=== PATIENT | male | born 1950 | race Caucasian/White ===

== ENCOUNTER 2019-10-28 11:07 | Emergency (ER) | payer MEDICARE, OTHER, SELFPAY ==
[2019-10-28 11:23] VITALS: BP 175/78; PULSE 88; RESP 17; TEMP 36.7; O2SAT 100
--- NOTE | 2019-10-28 11:33 | ED.GENADULT ---
HPI - General Adult General Chief complaint: Ear Stated complaint: Ear pain (left) Time Seen by Provider: 10/28/19 11:33 Source: patient Mode of arrival: ambulatory Limitations: no limitations History of Present Illness HPI narrative: 69-year-old male patient presents the [facility] with complaints of left ear pain and bleeding from the left ear for the past 3 days. Patient states he did have a little bit of pain to the left ear about 4 days ago and states that that it went away the next day but noticed a little bit of blood to the canal when he was cleaning out his ears. Patient states that he does wear hearing aids and whenever he would take out his hearing aid he would notice some blood on his hearing aids from the ear canal. Denies any pain at this time. Denies any fevers, body aches or chills. Related Data Home Medications Medication Instructions Recorded Confirmed levothyroxine 50 mcg PO DAILY 10/28/19 10/28/19 Allergies Allergy/AdvReac Type Severity Reaction Status Date / Time Penicillins Allergy Unknown Verified 10/28/19 11:40 Review of Systems Review of Systems: Narrative: CONSTITUTIONAL: Denies fever, chills, or sweats. EYES: Denies visual changes, redness, or discharge. ENT: Denies rhinorrhea, congestion, sore throat, left otalgia with blood x3-4 days CARDIOVASCULAR: Denies chest pain, palpitations, or edema. RESPIRATORY: Denies cough or dyspnea. GASTROINTESTINAL: Denies abdominal pain, nausea, vomiting, or diarrhea. GENITOURINARY: Denies dysuria or hematuria. SKIN: Denies rash or itching. MUSCULOSKELETAL: Denies back pain, joint pain, or myalgia. NEUROLOGIC: Denies headache, numbness, or weakness. PSYCHIATRIC: Denies anxiety or depression. [facility] Past Medical History Medical History (Updated 10/28/19 @ 11:45 by CHEYANNE Nagel) Thyroid cancer Social History Social History Alcohol intake: current Gender identity (if verbalized by the patient): Male Comments At the time of my signature I agree with nursing past medical history, surgical, social, and family history. There is no relevant family history pertinent to the presenting complaint. Exam Narrative: Exam Narrative: GENERAL: Well-appearing, well-nourished, and in no acute distress. HEAD: Normocephalic, atraumatic. EYES: PERRLA and EOMI. ENT: Nares clear, no rhinorrhea or epistaxis. Mucous membranes moist. The left TM does have some blood in the canal what appears to be a little hematoma to the left side of the canal. The TM appears to be intact no obvious tear is noted however there is some injection noted to the TM. NECK: Supple. No lymphadenopathy CHEST: Clear to auscultation. No respiratory distress. HEART: Regular rate and rhythm. No murmur heard. Normal peripheral pulses. ABDOMEN: Soft, nontender, nondistended, normal active bowel sounds. EXTREMITIES: Normal range of motion. No edema. SKIN: Warm, dry, no rash. NEURO: No focal deficits. Alert and oriented x3. Course Vital Signs Vital signs: Vital signs reviewed. Medical Decision Making Differential Diagnosis Differential Diagnosis: Differential diagnosis: Otitis media, otitis externa, perforated TM, infection of the outer ear, foreign body or cerumen impaction, ruptured TM, acute mastoiditis, ligament otitis externa, dehydration, pneumonia, sepsis, dental or intraoral infection, TMJ dysfunction Discussed with patient I am to go ahead and treat him for possible ear infection as well as canal infection. Discussed with patient I will discharge him home with some oral antibiotics along with an eardrop. Discussed with him I would encourage him to keep the hearing aid out of that ear canal for right now while this heals. Discussed with him that he can take Tylenol and ibuprofen for the pain. Also advised him not to use any type of Q-tips or put anything in the ear at this time for that could encourage the hematoma to bleed aga
== END 2019-10-28 11:47 | disposition home or self-care (01) ==
PROVIDERS: Emergency Provider Nurse Practitioner Family; PCP Family Medicine Adolescent Medicine
DX: H60.322 Hemorrhagic otitis externa, left ear (principal); H66.92 Otitis media, unspecified, left ear; Z85.850 Personal history of malignant neoplasm of thyroid
CPT/HCPCS: 99213; G0463

== ENCOUNTER 2020-06-17 09:56 | Outpatient (CLI) | payer MEDICARE, OTHER, SELFPAY ==
[2020-06-19 15:24] LABS: Hepatitis C Viral RNA PCR 2600000 IU/mL
[2020-06-20 19:45] LABS: Ceruloplasmin 25 mg/dL (18-36)
[2020-06-20 23:30] LABS: Mitochondrial (M2) Ab (IgG) <=20.0 U (<=20.0)
[2020-06-21 08:29] LABS: HCV Genotype, LiPA 1a
== END 2020-06-17 09:57 | disposition home or self-care (01) ==
LOC: ANHLAB 10:02
PROVIDERS: PCP Family Medicine Adolescent Medicine; Visit Provider Internal Medicine Gastroenterology
DX: B19.20 Unspecified viral hepatitis C without hepatic coma (principal); R79.89 Other specified abnormal findings of blood chemistry
CPT/HCPCS: 36415; 82104; 82390; 82728; 83520; 86038; 87522

== ENCOUNTER 2020-06-19 07:27 | Outpatient (CLI) | payer MEDICARE, OTHER, SELFPAY ==
--- NOTE | ~2020-06-19 | CT_ITS ---
EXAMINATION: CT abdomen w con INDICATION: Hepatitis C, elevated liver enzymes TECHNIQUE: Computed tomographic images of the abdomen were obtained after the administration of 100 c c of Omnipaque 350 intravenous contrast. The dose-length product (DLP) was 108.80 mGy-cm. Automated e xposure control and iterative reconstruction technique were employed. COMPARISON: None FINDINGS: The lung bases are clear. The heart size is normal. There is a small sliding hiatal hernia. The liver, spleen, pancreas, gallbladder, and adrenal glands are normal. The kidneys are unremarkabl e. There are no pathologically enlarged abdominal lymph nodes. There is calcified atherosclerosis of the aorta and many of the other arteries. There is no free intraperitoneal gas or evidence of bowel o bstruction. A moderate volume of colonic stool is present. IMPRESSION: 1. No CT correlate for the patient's symptoms. Reviewed, dictated and finalized at location A.
[2020-06-19 07:57] LABS: Estimated Glomerular Filt Rate > 60
== END 2020-06-19 07:28 | disposition home or self-care (01) ==
PROVIDERS: PCP Family Medicine Adolescent Medicine; Visit Provider Internal Medicine Gastroenterology
DX: B19.20 Unspecified viral hepatitis C without hepatic coma (principal); R79.89 Other specified abnormal findings of blood chemistry; R74.8 Abnormal levels of other serum enzymes
CPT/HCPCS: 74160; Q9967

== ENCOUNTER 2020-08-03 14:31 | Outpatient (CLI) | payer MEDICARE, OTHER, SELFPAY ==
[2020-08-03 15:44] LABS: HIV 1/2 Ab P24 Ag Result Negative (Negative)
== END 2020-08-03 14:32 | disposition home or self-care (01) ==
PROVIDERS: PCP Family Medicine Adolescent Medicine; Visit Provider Nurse Practitioner Family
DX: B19.20 Unspecified viral hepatitis C without hepatic coma (principal)
CPT/HCPCS: 36415; 86703; G0432

== ENCOUNTER 2022-04-25 08:01 | Outpatient (CLI) | payer MEDICARE, SELFPAY ==
--- NOTE | ~2022-04-25 | US_ITS ---
EXAMINATION: US art doppler w press LE BI DATE: 04/25/2022 09:13 INDICATION: Claudication with calf pain when walking up stairs. TECHNIQUE: Segmental pressures and plethysmographic and Doppler waveforms of the brachial and lower e xtremity arteries were obtained. COMPARISON: None. FINDINGS: Right and left brachial artery pressures of 131 mm Hg and 121 mm Hg, respectively, are concordant (no rmal difference <= 30 mmHg). The right and left high-thigh pressure indices are 1.09 and 0.93, respec tively (normal > 1.2). The right ankle-brachial index (JANETTE) is 0.98 (normal >= 0.9-1). The right great toe-brachial index (T BI) is 0.33 (normal >= 0.6-0.8). The right lower extremity segmental pressure gradients are normal (n ormal gradients <= 20-30 mmHg between adjacent levels on the same leg or the same levels on the two l egs). Arterial waveforms are triphasic at the right common femoral and superficial femoral arteries a nd biphasic in the more distal arteries with brisk systolic upstrokes throughout. The left JANETTE is 0.89. The left TBI is 0.54. The left lower extremity segmental pressure gradients are normal. Arterial waveforms are biphasic with brisk systolic upstrokes throughout the arteries of the left lower limb. IMPRESSION: 1. Arterial occlusive disease to bilateral lower limbs with borderline right and mildly decreased lef t ABIs and moderately decreased right and mildly decreased left TBIs. Reviewed, dictated and finalized at location B. IMPRESSION: 1. Arterial occlusive disease to bilateral lower limbs with borderline right an d mildly decreased left ABIs and moderately decreased right and mildly decrease d left TBIs.
== END 2022-04-25 08:02 | disposition home or self-care (01) ==
PROVIDERS: PCP Family Medicine Adolescent Medicine; Visit Provider Family Medicine Adolescent Medicine
DX: I73.9 Peripheral vascular disease, unspecified (principal)
CPT/HCPCS: 93923

== ENCOUNTER → 2022-04-28 07:01 | Outpatient (CLI) | payer MEDICARE, SELFPAY ==
--- NOTE | ~2022-04-28 | XR_ITS ---
Clinical Indication: Cough PA and lateral views of the chest: Comparison: 06/03/2016 Findings: Suspected 9 mm left midlung pulmonary nodule. COPD pattern present. Cardiomediastinal silh ouette is within normal limits. Bones and soft tissues are unremarkable. Impression: Possible 9 mm left midlung pulmonary nodule. CT recommended to further assess. COPD. Reviewed, dictated and finalized at location . Impression: Possible 9 mm left midlung pulmonary nodule. CT recommended to further assess. COPD.
== END ==
PROVIDERS: PCP Family Medicine Adolescent Medicine; Visit Provider Physician Assistant
DX: R05.9 Cough, unspecified (principal); J44.9 Chronic obstructive pulmonary disease, unspecified
CPT/HCPCS: 71046